=== PATIENT | female | born 1995 | race Caucasian/White ===

== ENCOUNTER 2019-04-22 20:03 | Emergency (ER) | payer OTHER ==
[2019-04-22 20:29] VITALS: BP 118/63; PULSE 82; TEMP 98; BMI 26.6
[2019-04-22] MEDS ORDERED: TETRACAINE 0.5% OPHTH SOLN 2 ML BOTTLE ONE (23:41)
[2019-04-22] MEDS ORDERED: FLUORESCEIN NA 1 EA STRIP ONE ×2 (23:42→23:43)
[2019-04-23] MEDS ORDERED: FLUORESCEIN NA 1 EA STRIP ONE (00:12)
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
== END 2019-04-23 00:17 | disposition home or self-care (01) ==
LOC: FER 20:03
DX: S00.33XA Contusion of nose, initial encounter (principal); S16.1XXA Strain of muscle, fascia and tendon at neck level, initial encounter; S00.03XA Contusion of scalp, initial encounter; Y04.0XXA Assault by unarmed brawl or fight, initial encounter; Y93.9 Activity, unspecified; Y92.9 Unspecified place or not applicable; F17.210 Nicotine dependence, cigarettes, uncomplicated
CPT/HCPCS: 70160-TC-FY; 70450-TC; 72050-TC-FY; 99281-25